=== PATIENT | female | born 1945 | race Caucasian/White ===

== ENCOUNTER → 2018-03-16 | Outpatient (CLI) | payer BC, MEDICARE ==
--- NOTE | 2018-03-17 14:11 | MM ---
Reason for exam: follow-up at short interval from prior study. History: Patient is postmenopausal. Physical Findings: Nurse did not find any significant physical abnormalities on exam. MG 3D Diag Mammo W/Cad RT CC and MLO view(s) were taken of the right breast. There are scattered fibroglandular densities. Finding #1: There is a benign round and oval stable mass in the right breast back to 2016 demonstrating stability over time. Finding #2: There are benign calcifications in the right breast. These results were verbally communicated with the patient and result sheet given to the patient on 03/16/18. ASSESSMENT: Benign, BI-RAD 2 RECOMMENDATION: Routine screening mammogram of both breasts in 5 months.
== END | disposition home or self-care (01) ==
LOC: RADMAMWWP 12:34
PROVIDERS: ATTEND Family Medicine
DX: R92.8 Other abnormal and inconclusive findings on diagnostic imaging of breast (principal)
CPT/HCPCS: 77061; 77065